=== PATIENT | male | born 1990 | race Caucasian/White ===

== ENCOUNTER 2024-11-11 10:17 | Emergency (ER) | payer SELFPAY ==
[2024-11-11 10:28] VITALS: BP 175/119
--- NOTE | 2024-11-11 11:11 | ED.GENMED ---
History of Present Illness
General
Chief Complaint: Musculo-Skeletal Complaint
Source: patient
Time Seen by Provider: 11/11/24 10:30
History of Present Illness
History of Present Illness:
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 Over the last 2 days has had gradually increased pain and diminished range of motion due to the pain.
Denies any focal weakness or numbness. Denies any falls or direct impact injuries. No history of similar. Has been taking ibuprofen with minimal to no relief stating yesterday did not receive any relief from this. Did not take anything for the
pain today.
Past History
Past History
ED Past Medical History: None
ED Past Surgical History: None
Social History
Tobacco: Non-smoker
Alcohol: None
Drug: None
Personal: Single
Living: with family
Review of Systems
Review of Systems
All Other Systems: ROS reviewed and negative except as documented in HPI and ROS
Phy Exam
Physical Exam
Physical Exam:
GENERAL: Alert , in no apparent distress
EYE: conjunctiva clear
Head: Normocephalic atraumatic
NECK: Supple,
ENT: mmm.
LUNGS: no acute respiratory distress
NEUROLOGICAL: Alert and oriented
SKIN: Warm and dry, skin intact.
MUSCULOSKELETAL: Right Shoulder: No obvious deformity, erythema, edema, ecchymosis, abrasion, laceration. Patient does have tenderness over the trapezius extending laterally towards the humeral head and down the medial border of the scapula.
Patient does allow full active and passive range of motion in all planes however does have disc work while doing so. Remainder of extremity is otherwise warm well-perfused and neurovascularly intact.
PSYCH: Normal and appropriate interaction.
Scores
Heart Failure Risk
Heart Failure Risk Score: Not Applicable
Heart Score for Chest Pain Patients
STEMI patient?: Not applicable
Withdrawal Assessment of Alcohol
Withdrawal Assessment Completed?: Not applicable
Course
Orders/Labs/Results
Orders:
Orders
11/11/24 11:01
CR Shoulder, Trauma - Right Urgent
Comment:
Reason For Exam: pain, LROM
Vital Signs
Initial and Last Documented VS:
Initial Vital Signs
Temp Pulse Resp Pulse Ox
98 F 98 18 100
11/11/24 10:25 11/11/24 10:25 11/11/24 10:25 11/11/24 10:25
Last Documented Vital Signs
Temp Pulse Resp BP Pulse Ox
98 F 80 18 154/113 98
11/11/24 10:25 11/11/24 12:00 11/11/24 12:00 11/11/24 12:00 11/11/24 12:00
MDM/Problems Addressed
Differential Diagnosis Includes:
tendonitis, bursitis, rotator cuff injury, less concern for fx/dislocation
MDM/Problems Addressed:
34-year-old male presenting to the emergency department for evaluation of atraumatic right shoulder pain began around 1 month ago, worse over the last 48 hours. Minimal relief with ibuprofen. No fevers or infectious symptoms. Patient does have
range of motion but is uncomfortable while doing so. Will obtain x-ray to further evaluate. Suspect more of a tendinopathy versus rotator cuff injury. Patient will likely need to follow-up with orthopedics and may need more advanced imaging for
further evaluation as well as physical therapy. Plan for discharge home following x-ray.
*Radiology
Radiology exam reviewed: radiology read reviewed
*Pulse Oximetry
Patient hypoxic: no
*Critical Care Note
Total Time (30-74mins, 75-104mins- exclusive of procedures): Not Applicable
Patient Management
Escalation/DeEscalation of care consider admission/obs:
Patient's x-ray without any acute abnormalities. Advised NSAIDs/Tylenol as needed for pain. Given he has attempted some medications at home with no relief will trial a Medrol Dosepak and Percocet as needed for pain. Follow-up with orthopedist.
Aware of return precautions to the ER.
ED Attending Note
-
Portions of this chart may have been created with voice recognition software.� Occasional wrong word or��sound alike� substitutions may have occurred due to the inherent limitations of voice recognition software.
Discharge Plan
Departure
Patient Disposition: Home (Routine Discharge)
Date of Disposition: 11/11/24
Time of Disposition: 11:49
Patient with high blood pressure during this ER visit?: Yes
Discharge Problem:
Right shoulder pain
Instructions: Shoulder pain - ED discharge instructions
Prescriptions:
New
methylprednisolone [Medrol (Antonio)] 4 mg tablets,dose pack
4 mg PO DIRECTED Qty: 21 0RF
oxycodone-acetaminophen [Percocet] 5-325 mg tablet
1 tab PO Q6HPRN PRN (Reason: pain) Qty: 6 0RF
Referrals:
UNKNOWN - PT DOES,NOT KNOW [Family Provider] -
Interventions
Interventions:
*Risk Screen - Suicide Last Done: 11/11/24 10:25
*General Assessment Last Done: 11/11/24 10:25
*Neglect/Abuse Screening Last Done: 11/11/24 10:25
ED- Fall Risk Assessment Last Done: 11/11/24 12:00
*ED COVID-19 Vaccine History Last Done: 11/11/24 12:00
*Nursing Disposition Last Done: 11/11/24 12:09
ED-Musculoskeletal Assessment Last Done: 11/11/24 12:00
Discharge Date and Time
Discharge Date/Time: 11/11/24 12:09
Print Language: CZECH
[2024-11-11 12:00] VITALS: BP 154/113
== END 2024-11-11 12:09 | disposition home or self-care (01) ==
LOC: EMR 10:17
PROVIDERS: EMERGENCY PHYSICIAN Student in an Organized Health Care Education/Training Program
DX: M25.511 Pain in right shoulder (principal); R03.0 Elevated blood-pressure reading, without diagnosis of hypertension
CPT/HCPCS: 99283; 73030

== ENCOUNTER 2025-07-16 17:24 | Emergency (ER) | payer OTHER, SELFPAY ==
[2025-07-16 17:31] VITALS: BP 155/110
--- NOTE | 2025-07-16 21:05 | ED.GENMED ---
History of Present Illness
General
Chief Complaint: Male Genito-Urinary Symptoms
Source: patient
Exam Limitations: none
Time Seen by Provider: 07/16/25 21:00
History of Present Illness
History of Present Illness:
Swollen left testicle for weeks if not longer. No significant pain. Although it does get in the way. No discharge. No burning or frequency. No fever. Did have sinus-like symptoms last week. These have resolved.
Past History
Past History
ED Past Medical History: None
ED Past Surgical History: Other (Marrero teeth)
Social History
Tobacco: Non-smoker
Alcohol: None
Drug: None
Personal: Single
Living: with family
Review of Systems
Review of Systems
All Other Systems: Not applicable
Constitutional: Denies fever
Phy Exam
Physical Exam
Physical Exam:
GENERAL: Alert and oriented in no apparent distress
EYE: Orbits normal.
LUNGS: No respiratory distress
NEUROLOGICAL: Alert and oriented , grossly non-focal
SKIN: Warm and dry, no rash or lesion, no discoloration, skin intact.
: Significant swelling to the left testicle. No warmth or erythema. Does not appear overly tender. Right testicle normal. Penis normal.
PSYCH: Normal and appropriate interaction.
Course
Orders/Labs/Results
Orders:
Orders
07/16/25 17:33
US Scrotum Urgent
Comment:
Reason For Exam: left testicular swelling x2 weeks
07/16/25 22:13
Amlodipine [Norvasc] 5 mg PO NOW STA
Vital Signs
Initial and Last Documented VS:
Initial Vital Signs
Temp Pulse Resp BP Pulse Ox
98.7 F 88 17 155/110 99
07/16/25 17:31 07/16/25 17:31 07/16/25 17:31 07/16/25 17:31 07/16/25 17:31
Last Documented Vital Signs
Temp Pulse Resp BP Pulse Ox
98.7 F 62 16 158/110 98
07/16/25 17:31 07/16/25 23:36 07/16/25 23:36 07/16/25 23:36 07/16/25 23:36
MDM/Problems Addressed
Differential Diagnosis Includes:
Fairly nontender but significant swelling of the left testicle. Does not appear to be a torsion complaint. More suspicious of either a hydrocele abscess although no erythema or warmth or tumor. Ultrasound pending. Will also check urine.
*Radiology
Radiology exam reviewed: radiology read reviewed (Moderate left hydrocele. Small right hydrocele. Small epididymal cyst)
*Pulse Oximetry
SaO2: 99
Oxygen Mode of Delivery: Room air
Patient hypoxic: no
*Critical Care Note
Total Time (30-74mins, 75-104mins- exclusive of procedures): Not Applicable
Update Note
Update Note:
Will follow-up with urology. Urinalysis unnecessary. Patient cannot urinate
2215... Patient's diastolic blood pressures remain significantly elevated. Patient noted he did have an elevated blood pressure prior. He is not great about seeing doctors. I highly suspect with certain degree he does have hypertension. Will
give him a dose of amlodipine and watch for a while. No current symptoms related to the blood pressure. No chest pain shortness of breath headache or neurologic symptoms
ED Attending Note
-
Portions of this chart may have been created with voice recognition software.� Occasional wrong word or��sound alike� substitutions may have occurred due to the inherent limitations of voice recognition software.
Discharge Plan
Departure
Patient Disposition: Home (Routine Discharge)
Date of Disposition: 07/16/25
Time of Disposition: 22:04
Patient with high blood pressure during this ER visit?: Yes
Discharge Problem:
Swollen left testicle, Left hydrocele
Instructions: Hydrocele, BLOOD PRESSURE
Prescriptions:
New
amlodipine 5 mg tablet
5 mg PO DAILY Qty: 30 0RF
No Action
methylprednisolone [Medrol (Antonio)] 4 mg tablets,dose pack
4 mg PO DIRECTED Qty: 21 0RF
oxycodone-acetaminophen [Percocet] 5-325 mg tablet
1 tab PO Q6HPRN PRN (Reason: pain) Qty: 6 0RF
Referrals:
Ozzie Moya MD [Active, Urology] - Follow up in 5-7 days
Activity Restrictions/Additional Instructions:
Also make sure you get your blood pressure followed up
Interventions
Interventions:
*Risk Screen - Suicide Last Done: 07/16/25 17:32
*General Assessment Last Done: 07/16/25 17:32
*Neglect/Abuse Screening Last Done: 07/16/25 17:32
*ED- Fall Risk Assessment Last Done: 07/16/25 23:46
*ED COVID-19 Vaccine History Last Done: 07/16/25 17:32
*Nursing Disposition Last Done: 07/16/25 23:46
ED-Male Genitourinary Assessment Last Done: 07/16/25 21:41
Discharge Date and Time
Discharge Date/Time: 07/16/25 23:49
Print Language: GUYANESE
[2025-07-16 21:42] VITALS: BMI 25.1
[2025-07-16 21:43] VITALS: BP 147/110
[2025-07-16 22:13] VITALS: BP 163/119
[2025-07-16] MEDS: NORVASC 5 MG PO (22:20)
[2025-07-16 22:52] VITALS: BP 167/118
[2025-07-16 23:36] VITALS: BP 158/110
== END 2025-07-16 23:49 | disposition home or self-care (01) ==
LOC: EMR 17:24
PROVIDERS: EMERGENCY PHYSICIAN Emergency Medicine
DX: N50.89 Other specified disorders of the male genital organs (principal); N43.3 Hydrocele, unspecified; N50.3 Cyst of epididymis; I10 Essential (primary) hypertension
CPT/HCPCS: 99284; 76870; 93976